=== PATIENT | female | born 1975 | race Caucasian/White ===

== ENCOUNTER 2018-03-21 05:00 | Inpatient (IN) | payer OTHER ==
[2018-03-21] MEDS ORDERED: LACTATED RINGERS 1,000 ML IV ONE (05:19)
[2018-03-21] MEDS ORDERED: SCOPOLAMINE HYDROBROMIDE 1.5MG/72HR PATCH TD ONE ×2 (05:19→08:48)
[2018-03-21] MEDS ORDERED: FAMOTIDINE 20 MG/2 ML VIAL ONE ×3 (05:20→08:48)
[2018-03-21] MEDS ORDERED: PROPOFOL 200 MG/20 ML VIAL IV ONE (08:48)
[2018-03-21] MEDS ORDERED: ROCURONIUM BROMIDE 10 MG/ML 5ML VIAL ONE (08:48)
[2018-03-21] MEDS ORDERED: ACETAMINOPHEN 1,000 MG/100 ML INJ IV ONE (08:48)
[2018-03-21] MEDS ORDERED: LACTATED RINGERS 1,000 ML IV.SOLN IV ONE ×2 (08:48)
[2018-03-21] MEDS ORDERED: PHENYLEPHRINE HCL 10 MG/1 ML ONE (08:48)
[2018-03-21] MEDS ORDERED: HYDROmorphone HCL/PF 2 MG/ML VIAL ONE ×2 (08:48→09:30)
[2018-03-21] MEDS ORDERED: MIDAZOLAM HCL 2 MG/2 ML VIAL ONE (08:48)
[2018-03-21] MEDS ORDERED: WATER FOR INJECTION,STERILE 50 ML VIAL IJ ONE (08:48)
[2018-03-21] MEDS ORDERED: ePHEDrine SULFATE 50 MG/1 ML IVP ONE (08:48)
[2018-03-21] MEDS ORDERED: LIDOCAINE HCL 2% PF 100MG/5ML VIAL IJ ONE (08:48)
[2018-03-21] MEDS ORDERED: SEVOFLURANE 250 ML LIQUID IH ONE (08:48)
[2018-03-21] MEDS ORDERED: fentaNYL CITRATE/PF 100 MCG/2 ML INJ. ONE (08:48)
[2018-03-21] MEDS ORDERED: CLINDAMYCIN PHOSPHATE 900 MG/6 ML VIAL ONE (08:48)
[2018-03-21] MEDS ORDERED: SODIUM CHLORIDE IRRIG SOLUTION 1,000 ML IR ONE (08:48)
[2018-03-21] MEDS ORDERED: ONDANSETRON HCL/PF 4 MG/ 2ML VIAL ONE (08:48)
[2018-03-21] MEDS ORDERED: SUGAMMADEX SODIUM 200 MG/2 ML VIAL IV ONE (08:48)
[2018-03-21] MEDS ORDERED: PROMETHAZINE HCL 25 MG/ML VIAL ONE (09:45)
[2018-03-21] MEDS ORDERED: HYDROmorphone HCL 2 MG TABLET PO PRN (11:11)
[2018-03-21] MEDS ORDERED: ACETAMINOPHEN 500 MG TABLET PO PRN (11:11)
[2018-03-21] MEDS ORDERED: fentaNYL CITRATE/PF 100 MCG/2 ML INJ. IVP PRN (11:11)
[2018-03-21 11:17] VITALS: BMI 25.7
--- NOTE | 2018-03-21 11:29 | History and Physical Report ---
History of Present Illnes - History of Present Illness Reason for Visit: Low back pain with radiation to right leg History of Present Illness: This is a 43 year old female who presnted to Dr. Sethi's office due to chronic low back which was disabling. She had previously had lumbar laminectomy without improvement in her symptoms. She presented today for total disc replacement at L5S1. This was performed today at our facility. No operative complications are noted in the record. - Past Medical History Cardiac: HTN Gastrointestinal: Irritable bowel disease Musculoskeletal: Chronic low back pain, Osteoarthritis Endocrine: Hypothyroidism. denies: Diabetes - Past Surgical History Past Surgical History: Appendectomy, Cholecystectomy, Hysterectomy, Tubal Ligation, Other (Arthroscopy of knee, thyroid surgery, shoulder surgery) - Past Family History Mother Family History: CAD (Mother and father), DM - Past Social History Smoke: Quit Alcohol: Rare Drugs: None Lives: With Family () Domestic Violence: Negative - Health Maintenance Health Maintenance: Cholesterol Influenza Vaccine: Current for this Influenza Season Pneumonia Vaccine: Yes Resuscitation Status: Resusciation Status Resuscitation Status Full Code - Unable to Obtain History Unable to Obtain: No Review of Systems - Review of Systems Constitutional: negative: Fever, Chills Eyes: negative: pain ENT: negative: Ear Pain, Ear Discharge Respiratory: negative: Cough, Dry Cardiovascular: negative: Chest Pain, Palpitations Gastrointestinal: Abdominal Pain. negative: Nausea, Vomiting Genitourinary: negative: Dysuria Musculoskeletal: Back Pain Skin: negative: Rash Neurological: negative: Weakness, Numbness, Incoordination, Confusion - Medications/Allergies Allergies/Adverse Reactions: Allergies Allergy/AdvReac Type Severity Reaction Status Date / Time cephalexin [From Keflex] Allergy Verified 03/21/18 10:44 dexamethasone Allergy Verified 03/21/18 10:43 oxycodone [From Percocet] Allergy Verified 03/21/18 10:41 Penicillins Allergy Verified 03/21/18 10:45 prednisone Allergy Verified 03/21/18 10:44 sulfamethoxazole Allergy Verified 03/21/18 10:44 [From Bactrim] tramadol [From Ultram] Allergy Verified 03/21/18 10:45 trimethoprim [From Bactrim] Allergy Verified 03/21/18 10:44 Home Medications: Home Medications Acetaminophen [Tylenol Extra Strength] 1,000 mg PO Q8 PRN 03/21/18 Losartan/Hydrochlorothiazide [Losartan-Hctz 50-12.5 mg Tab] 12.5 - 50 mg PO DAILY 03/21/18 Pregabalin [Lyrica] 75 mg PO DAILY 03/21/18 Thyroid,Pork [Base Remover Thyroid] 90 mg PO DAILY 03/21/18 Current Inpatient Medications: Current Inpatient Medications Acetaminophen (Tylenol Extra Strength) 500 mg PO Q4 PRN PRN Reason: for mild pain 1-4/fever Docusate Sodium (Colace) 100 mg PO BID [facility] Stop: 03/23/18 09:01 Fentanyl Citrate () 50 mcg IVP Q2H PRN PRN Reason: Moderate pain 5-7 Stop: 03/22/18 11:10 Fentanyl Citrate () 100 mcg IVP Q2H PRN PRN Reason: For Severe Pain 8-10 Stop: 03/22/18 11:10 Heparin Sodium (Porcine) (Heparin) 5,000 unit SQ Q12 [facility] Hydromorphone HCl (Dilaudid) 4 mg PO Q4H PRN PRN Reason: Severe Pain 8-10 Stop: 03/22/18 11:10 Clindamycin Phosphate 600 mg/ (Sodium Chloride) 104 mls @ 104 mls/hr IV Q8 [facility] Stop: 03/21/18 21:01 Ondansetron HCl (Zofran 4 Mg/2 Ml) 4 mg IVP Q6H PRN PRN Reason: Nausea / Vomiting Stop: 03/25/18 11:10 Exam - Exam Vital Signs: Vital Signs (72 hours) 03/21/18 03/21/18 03/21/18 10:20 10:37 10:50 Temperature 97.1 F L 97.1 F L 97.3 F L Pulse Rate [ 85 85 73 Pulse ox] Respiratory 14 14 16 Rate Blood Pressure 89/40 89/40 88/45 [Left Arm] O2 Sat by Pulse 100 100 95 Oximetry 03/21/18 11:20 Temperature 96.7 F L Pulse Rate [ 91 H Pulse ox] Respiratory 16 Rate Blood Pressure 93/40 [Left Arm] O2 Sat by Pulse 99 Oximetry General: Alert, Oriented to Person, Oriented to Place, Oriented to Time, Thin HEENT: Atraumatic, PERRLA, EOMI Neck: Stridor, Rigidity Lungs: Clear to auscultation, Normal air movement, Speaks full Sentences. No: Respiratory Distress, Wheezes Cardiovascular: Regular rate Murmur: No: Systolic Murmur Abdomen: Normal bowel sounds, Other (Dressing in place and dry) Genitourinary: No: Right Inguinal Hernia, Left Inguinal Hernia Male Genitourinary: No: Scrotal Edema Female Genitourinary: No: Prolapse Integumentary: Normal, [place], Warm, Dry Extremities: No clubbing, No cyanosis, No edema Neurological: Normal speech Psych/Mental Status: Mental status NL, Mood NL Assessment/Plan - Assessment/Plan (1) Lumbar disc disease Status: Acute Current Visit: Yes Assessment: S/P total disc replacement at L5/S1 (2) Acquired hypothyroidism Status: Acute Current Visit: Yes Assessment: Continue current dose of dessicated thyroid (3) Hypertension Status: Acute Current Visit: Yes Qualifiers: Hypertension type: essential hypertension Qualified Code(s): I10 - Essential (primary) hypertension Assessment: Hold losartan/HCTZ today, restart in am if BP comes up. VTE Assessment - RISK FACTOR SCORE VTE RISK FACTOR SCORES: AGE 40-60 YEARS, MAJOR SURGERY/ANESTHESIA TIME > 1 HOUR (On Heparin 5000 Units SC q12h)
[2018-03-21] MEDS: POTASSIUM CHLOR 20 MEQ D51/2NS 1,000 ML IV SCH (12:27)
[2018-03-21] MEDS: fentaNYL CITRATE/PF 100 MCG/2 ML INJ. IVP PRN ×2 (14:26→23:58)
[2018-03-21] MEDS ORDERED: CLINDAMYCIN PHOSPHATE/D5W 50 ML IV ONE ×2 (16:20→23:31)
[2018-03-21] MEDS: CLINDAMYCIN PHOSPHATE/D5W 600 MG in PREMIX BAG 1 BAG IV SCH (16:24)
[2018-03-21] MEDS: ONDANSETRON HCL/PF 4 MG/ 2ML VIAL IVP PRN (17:33)
[2018-03-21] MEDS: HEPARIN SODIUM 5000 UNIT/1 ML SQ SCH (20:20)
[2018-03-21] MEDS: DOCUSATE SODIUM 100 MG CAPSULE PO SCH (20:20)
[2018-03-21] MEDS: PREGABALIN 50 MG CAPSULE PO SCH ×2 (20:20→21:28)
[2018-03-22] MEDS: ONDANSETRON HCL/PF 4 MG/ 2ML VIAL IVP PRN ×3 (00:01→16:56)
[2018-03-22] MEDS: POTASSIUM CHLOR 20 MEQ D51/2NS 1,000 ML IV SCH ×2 (00:02→13:27)
[2018-03-22] MEDS: CLINDAMYCIN PHOSPHATE/D5W 600 MG in PREMIX BAG 1 BAG IV SCH (00:03)
[2018-03-22 07:26] LABS: eGFR (Non-African) > 60
[2018-03-22 08:38] LABS: MEAN CORPUSCULAR HEMOGLOBIN 30.8 pg (28.0-34.0)
[2018-03-22 08:39] LABS: BASOPHILS % 0.3 (0.0-1.5); EOSINOPHILS % 1.1 % (0.0-6.8); MONOCYTES % 7.1 % (0.0-11.0); NEUTROPHILS # 6.5 # k/uL (1.4-7.7)
--- NOTE | 2018-03-22 08:39 | Inpatient Progress Note ---
Subjective - Required Recertification Statement I anticipate X number of days because-include discharge plan: 1 - Review of Systems Events since last encounter: Nicol is still very weak, likely due to her hypotension. We are holding her losartan and hydrochlorothiazide this morning due to her hypotension. She has not eaten this morning. Her BMP looks good this morning, however her CBC is still pending. General: Denies: Chills, Night Sweats HEENT: Denies: Head Aches Pulmonary: Denies: Dyspnea, Cough Cardiovascular: Denies: Chest Pain Gastrointestinal: Nausea, Abdominal Pain (at incision). Denies: Vomiting Genitourinary: Denies: Dysuria Musculoskeletal: Leg Pain (left leg) Objective - Exam Vitals and I&O: Vital Signs Temp 98.6 F 03/22/18 06:00 Pulse 75 03/22/18 06:00 Resp 16 03/22/18 06:00 BP 97/54 03/22/18 06:00 Pulse Ox 99 03/22/18 07:00 Intake & Output 03/21/18 03/21/18 03/22/18 11:59 23:59 11:59 Intake Total 0 625 440 Output Total 400 1000 1025 Balance -400 -375 -585 Weight 65.771 kg Intake: IV 0 625 320 Right Antecubital 0 625 320 Oral 0 0 120 Output: Urine 400 1000 1025 Other: Voiding Method Toilet Toilet # Voids 1 General: Alert, Oriented to Person, Oriented to Place HEENT: Atraumatic, PERRLA Neck: Supple, No JVD Lungs: Clear to auscultation Cardiovascular: Regular rate Abdomen: Normal bowel sounds, Soft, Other (minimal tenderness around incision) Extremities: No clubbing, No cyanosis, No edema Skin: Normal, [place], Warm Neurological: Normal speech Psych/Mental Status: Mental status NL - Results Results: Laboratory Results Sodium 135 mmol/L (136-145) L 03/22/18 06:45 Potassium 3.4 mmol/L (3.5-5.1) L 03/22/18 06:45 Chloride 106 mmol/L (98-107) 03/22/18 06:45 Carbon Dioxide 26 mmol/L (22-30) 03/22/18 06:45 BUN 7 mg/dL (7-17) 03/22/18 06:45 Creatinine 0.92 mg/dL (0.52-1.04) 03/22/18 06:45 Estimated Creat Clear 97 03/22/18 06:45 Est GFR ( Amer) > 60 (60-) 03/22/18 06:45 Est GFR (Non-Af Amer) > 60 (60-) 03/22/18 06:45 Glucose 141 mg/dL (74-106) H 03/22/18 06:45 Calcium 7.4 mg/dL (8.4-10.2) L 03/22/18 06:45 - Procedures Procedures: Total disc replacement L5L1 Assessment/Plan - Assessment/Plan (1) Lumbar disc disease Status: Acute Current Visit: Yes Assessment: S/P total disc replacement at L5S1 Plan: If CBC looks good, and she can ambulate today, will d/c to home. (2) Acquired hypothyroidism Status: Acute Current Visit: Yes Assessment: Continue current dose of dessicated thyroid (3) Hypertension Status: Acute Current Visit: Yes Qualifiers: Hypertension type: essential hypertension Qualified Code(s): I10 - Essential (primary) hypertension Assessment: Now hypotensive Plan: Hold Losartan and HCTZ
[2018-03-22] MEDS ORDERED: LOSARTAN POTASSIUM 50 MG TABLET PO SCH (09:00)
[2018-03-22] MEDS ORDERED: PATIENT OWN MED 1 EACH EACH PO SCH (09:00)
[2018-03-22] MEDS ORDERED: HYDROCHLOROTHIAZIDE 25 MG TABLET PO SCH (09:00)
[2018-03-22] MEDS: HEPARIN SODIUM 5000 UNIT/1 ML SQ SCH (09:13)
[2018-03-22] MEDS: DOCUSATE SODIUM 100 MG CAPSULE PO SCH (09:13)
[2018-03-22] MEDS: PREGABALIN 50 MG CAPSULE PO SCH ×2 (09:13→09:52)
--- NOTE | 2018-03-22 16:59 | Discharge Summary ---
Discharge Summary - Discharge Sumary History of Present Illness: This is a 43 year old female who had chronic and worsening low back pain with radiculopathy. She did not respond to conservative measures, and presented to Dr. Sethi's office for evaluation. She was felt to be a candidated for total disc replacement at L5S1. Condition at Discharge: Stable Home Medications: Ambulatory Orders Medication Instructions Recorded Acetaminophen [Tylenol Extra 1,000 mg PO Q8 PRN 03/21/18 Strength] Losartan/Hydrochlorothiazide 12.5 - 50 mg PO DAILY 03/21/18 [Losartan-Hctz 50-12.5 mg Tab] Pregabalin [Lyrica] 75 mg PO DAILY 03/21/18 Thyroid,Pork [[employer]er Thyroid] 90 mg PO DAILY 03/21/18 Procedures this Visit: Other (Total disc replacement L5/S1) Allergies/Adverse Reactions: Allergies Allergy/AdvReac Type Severity Reaction Status Date / Time cephalexin [From Keflex] Allergy Verified 03/21/18 10:44 dexamethasone Allergy Verified 03/21/18 10:43 oxycodone [From Percocet] Allergy Verified 03/21/18 10:41 Penicillins Allergy Verified 03/21/18 10:45 prednisone Allergy Verified 03/21/18 10:44 sulfamethoxazole Allergy Verified 03/21/18 10:44 [From Bactrim] tramadol [From Ultram] Allergy Verified 03/21/18 10:45 trimethoprim [From Bactrim] Allergy Verified 03/21/18 10:44 Patient Problems: Current Active Problems Problem Status Onset Acquired hypothyroidism Acute Hypertension Acute Lumbar disc disease Acute Discharge Summary: She is discharged to home with resumption of all medications as prior to admission. Rx for hydrococone/APAP 5/325 1 po q4h prn pain Regular diet Follow up with Dr. Sethi as scheduled.
[2018-03-22 17:48] VITALS: BP 117/72
== END 2018-03-22 17:40 | disposition home or self-care (01) | DRG 518 ==
LOC: OPSURG 05:00 → SOUTH 10:15
PROVIDERS: ADMIT Family Medicine; ATTEND Family Medicine
PROC: 0SR40JZ Replacement of Lumbosacral Disc with Synthetic Substitute, Open Approach (ICD-10-PCS; principal; 2018-03-21)
DX: M51.27 Other intervertebral disc displacement, lumbosacral region (principal); M51.37 Other intervertebral disc degeneration, lumbosacral region
CPT/HCPCS: 20936; 22633; 22842; 22853; 22857; 36415; 63030; 63047; 80048; 85025; 86885; 86900; 86920; 99232; 99238; J1170; J1644; J2001; J2250; J2307; J2405; J2550; J2704; J3010; P9040; S0028; A9270-GY; J2370; J7070; J7120